=== PATIENT | female | born 1940 | race African-American/Black ===

== ENCOUNTER 2020-03-10 22:29 | Inpatient (IN) | payer MEDICARE, MEDICAID ==
[~2020-03-10] VITALS: Ht 170.2 cm; Wt 84.6 kg
[~2020-03-10 22:29] MED LIST: AMIN30LI2 PO; ASCO500C6 PO; ASPI-1497 PO; ATOR10TA PO; BRIM10DR2 OP; BRIM15DR2 RIGHTEYE; CHOL100044 PO; CLON0.1T PO; CLOP75TA4 PO; DOCU-138 PO; FAMO20TA8 PO; GABA100C PO; GLIP5TAB12 PO; MELA3TAB63 PO; METF-414 PO; METO25TA6 PO; MULT-1146 PO; PIOG15TA6 PO; TRAV2.5D EACHEYE
[2020-03-10] MEDS ORDERED: ONDANSETRON HCL 4MG/2ML INJ IV STA (23:28)
[2020-03-10] MEDS ORDERED: SODIUM CHLORIDE 0.9% 1,000 ML IV ONE (23:28)
[2020-03-11 00:19] LABS: BASOPHILS % 0.9 % (0.0-2.0); EOSINOPHILS % 2.1 % (0.0-5.0); HEMOGLOBIN. 12.4 g/dL (12.0-16.0); LYMPHOCYTES % 30.8 % (20.0-50.0); MEAN CORPUSCULAR VOLUME 82.7 fL (81.0-99.0); MEAN PLATELET VOLUME 8.2 fl (7.4-10.4); MONOCYTES % 8.5 % (2.0-8.0); NEUTROPHILS % 57.7 % (40.0-76.0); PLATELET 296 x1000/uL (130-400); RED BLOOD CELL COUNT 4.59 mill/uL (4.2-5.4); RED CELL DISTRIBUTION WIDTH 18.3 % (11.6-14.6)
[2020-03-11 00:22] LABS: CHLORIDE 107 mEq/L (98-107)
[2020-03-11 00:25] LABS: INR 1.1; PROTHROMBIN TIME 11.2 sec (9.6-11.0)
[2020-03-11] MEDS ORDERED: DESMOPRESSIN ACETATE IVPB 20 MCG in SODIUM CHLORIDE 0.9% 50 ML IV ONE (00:30)
[2020-03-11] MEDS ORDERED: LORAZEPAM 2MG/ML CPJ IV PRN (08:00)
[2020-03-11] MEDS: CLONIDINE 0.1MG TABLET PO SCH ×3 (08:17→21:15)
[2020-03-11] MEDS ORDERED: LABETALOL 5MG/ML SYR 20 MG/4 ML SYRINGE IV NR (09:50)
[2020-03-11] MEDS ORDERED: ONDANSETRON HCL 4MG/2ML INJ IV PRN (10:15)
[2020-03-11] MEDS ORDERED: DEXTROSE 50% WATER 50ML SYRINGE IV PRN (10:15)
[2020-03-11] MEDS ORDERED: CLONIDINE 0.1MG TABLET PO PRN (10:15)
[2020-03-11] MEDS ORDERED: ACETAMINOPHEN 325MG TABLET PO PRN (10:15)
[2020-03-11] MEDS: FAMOTIDINE 20MG TABLET PO SCH (10:18)
[2020-03-11] MEDS: GLIPIZIDE 5MG TABLET PO SCH ×2 (10:18→17:23)
[2020-03-11] MEDS: METOPROLOL TARTRATE 25MG TABLET PO SCH ×2 (10:19→21:16)
[2020-03-11] MEDS: GABAPENTIN 100MG CAPSULE PO SCH ×4 (10:19→21:15)
[2020-03-11 10:30] VITALS: BP 203/89
[2020-03-11 11:00] VITALS: BP 150/60
[2020-03-11] MEDS: AMLODIPINE 10MG TABLET PO SCH (11:13)
[2020-03-11 12:00] VITALS: BP 160/64
[2020-03-11] MEDS: BLOOD SUGAR DIAGNOSTIC STRIP TEST SCH ×3 (12:32→21:16)
[2020-03-11] MEDS: INSULIN LISPRO 100 UNITS/ML SUBCUT SCH ×3 (12:58→21:00)
[2020-03-11] MEDS ORDERED: METFORMIN HCL 500MG TABLET PO SCH (13:00)
[2020-03-11 16:00] VITALS: BP 115/52
[2020-03-11 20:00] VITALS: BP 174/62
[2020-03-11] MEDS: METFORMIN HCL 500MG TABLET PO SCH (21:15)
[2020-03-12] VITALS: BP 116/59
[2020-03-12 04:00] VITALS: BP 164/55
[2020-03-12] MEDS: CLONIDINE 0.1MG TABLET PO SCH ×3 (06:22→22:49)
[2020-03-12] MEDS: BLOOD SUGAR DIAGNOSTIC STRIP TEST SCH ×4 (06:23→21:00)
[2020-03-12] MEDS: INSULIN LISPRO 100 UNITS/ML SUBCUT SCH ×4 (06:23→22:51)
[2020-03-12] MEDS: GLIPIZIDE 5MG TABLET PO SCH ×2 (06:24→16:49)
[2020-03-12 10:02] VITALS: BP 164/56
[2020-03-12] MEDS: AMLODIPINE 10MG TABLET PO SCH (10:21)
[2020-03-12] MEDS: FAMOTIDINE 20MG TABLET PO SCH (10:21)
[2020-03-12] MEDS: METOPROLOL TARTRATE 25MG TABLET PO SCH ×2 (10:21→22:49)
[2020-03-12] MEDS: GABAPENTIN 100MG CAPSULE PO SCH ×4 (10:22→22:49)
[2020-03-12 16:13] LABS: CHLORIDE 106 mEq/L (98-107)
[2020-03-12 16:19] LABS: BASOPHILS % 0.7 % (0.0-2.0); EOSINOPHILS % 2.3 % (0.0-5.0); HEMATOCRIT. 28.5 % (36.0-48.0); HEMOGLOBIN. 9.2 g/dL (12.0-16.0); LYMPHOCYTES % 27.1 % (20.0-50.0); MEAN CORPUSCULAR HEMOGLOBIN 26.4 pg (28.0-32.0); MEAN CORPUSCULAR VOLUME 82.1 fL (81.0-99.0); MEAN PLATELET VOLUME 8.5 fl (7.4-10.4); MONOCYTES % 7.9 % (2.0-8.0); PLATELET 244 x1000/uL (130-400); RED BLOOD CELL COUNT 3.47 mill/uL (4.2-5.4); RED CELL DISTRIBUTION WIDTH 18.7 % (11.6-14.6)
[2020-03-12 20:00] VITALS: BP 177/67
[2020-03-12] MEDS: METFORMIN HCL 500MG TABLET PO SCH (22:50)
[2020-03-13] VITALS (7 sets, daily range): BP systolic 134–193; BP diastolic 48–92
[2020-03-13] MEDS: CLONIDINE 0.1MG TABLET PO SCH ×3 (05:28→21:12)
[2020-03-13] MEDS: BLOOD SUGAR DIAGNOSTIC STRIP TEST SCH ×4 (06:24→21:13)
[2020-03-13] MEDS: GLIPIZIDE 5MG TABLET PO SCH ×2 (06:24→18:02)
[2020-03-13] MEDS: INSULIN LISPRO 100 UNITS/ML SUBCUT SCH ×3 (06:25→18:05)
[2020-03-13] MEDS: FAMOTIDINE 20MG TABLET PO SCH (08:32)
[2020-03-13] MEDS: METOPROLOL TARTRATE 25MG TABLET PO SCH ×2 (08:33→21:12)
[2020-03-13] MEDS: AMLODIPINE 10MG TABLET PO SCH (08:33)
[2020-03-13] MEDS: GABAPENTIN 100MG CAPSULE PO SCH ×4 (08:33→21:11)
[2020-03-13 10:31] LABS: HEMATOCRIT 34.5 % (36.0-48.0); HEMOGLOBIN 11.1 g/dL (12.0-16.0)
[2020-03-13] MEDS: METFORMIN HCL 500MG TABLET PO SCH (21:12)
== END 2020-03-13 23:05 | DRG 207 ==
LOC: ER 22:29 → 5WST 03-11 01:17 → ENRESERV 03-11 07:39
PROVIDERS: ADMIT Internal Medicine; ATTEND Internal Medicine
PROC: 30233M1 Transfusion of Nonautologous Plasma Cryoprecipitate into Peripheral Vein, Percutaneous Approach (ICD-10-PCS; principal; 2020-03-11)
DX: R58 Hemorrhage, not elsewhere classified (principal); I16.0 Hypertensive urgency; I10 Essential (primary) hypertension; E11.9 Type 2 diabetes mellitus without complications; E78.5 Hyperlipidemia, unspecified; E44.0 Moderate protein-calorie malnutrition; F03.90 Unspecified dementia, unspecified severity, without behavioral disturbance, psychotic disturbance, mood disturbance, and anxiety; E78.00 Pure hypercholesterolemia, unspecified; Z86.73 Personal history of transient ischemic attack (TIA), and cerebral infarction without residual deficits; Z79.02 Long term (current) use of antithrombotics/antiplatelets; Z68.29 Body mass index [BMI] 29.0-29.9, adult; Z79.899 Other long term (current) drug therapy
CPT/HCPCS: 36415; 71045; 80048; 80053; 82962; 85014; 85018; 85025; 86850; 86900; 86927; 93005; 99291; J1815; J2060; J2405; J2597; J3490; J7030; P9017

== ENCOUNTER 2022-01-16 01:53 | Inpatient (IN) | payer MEDICARE, MEDICAID ==
[~2022-01-16] VITALS: Ht 157.5 cm; Wt 69.9 kg
[~2022-01-16 01:53] MED LIST changes: +CLOP-31 PO; -CLOP75TA4 PO; +MELA3TAB40 PO; -MELA3TAB63 PO; -TRAV2.5D EACHEYE; +TRAV2.5D9 EACHEYE
[2022-01-16] MEDS ORDERED: IPRATROPIUM BROMIDE (0.02%) 0.5MG/2.5ML NEB HHN STA (01:58)
[2022-01-16] MEDS ORDERED: METHYLPREDNISOLONE SOD SUCC 125 MG/2 ML VIAL IV STA (01:58)
[2022-01-16] MEDS ORDERED: ALBUTEROL (0.083%) 2.5MG/3ML NEB HHN STA (01:58)
[2022-01-16 03:13] LABS: BASOPHILS % 0.2 % (0.0-2.0); EOSINOPHILS % 0.4 % (0.0-5.0); HEMATOCRIT. 39.1 % (36.0-48.0); HEMOGLOBIN. 12.4 g/dL (12.0-16.0); LYMPHOCYTES % 11.4 % (20.0-50.0); MEAN CORPUSCULAR HEMOGLOBIN 26.1 pg (28.0-32.0); MEAN CORPUSCULAR VOLUME 82.4 fL (81.0-99.0); MEAN PLATELET VOLUME 8.7 fl (7.4-10.4); MONOCYTES % 5.9 % (2.0-8.0); NEUTROPHILS % 82.1 % (40.0-76.0); PLATELET 311 x1000/uL (130-400); RED BLOOD CELL COUNT 4.74 mill/uL (4.2-5.4)
[2022-01-16] MEDS ORDERED: AZITHROMYCIN 500MG/250ML 250 ML IV NR (03:30)
[2022-01-16] MEDS ORDERED: CEFTRIAXONE 1 G PREMIX 50 ML IV NR (03:30)
[2022-01-16 03:47] LABS: CHLORIDE 107 mEq/L (98-107)
[2022-01-16 03:57] LABS: ETHANOL BLOOD < 10 mg/dL
[2022-01-16] MEDS ORDERED: NITROGLYCERIN OINT 1GM/INCH UDPKT TD ONE (05:30)
[2022-01-16] MEDS ORDERED: ASPIRIN 325MG EC TABLET PO ONE (05:30)
[2022-01-16] MEDS ORDERED: CLOPIDOGREL 75MG TABLET PO NR (05:30)
[2022-01-16] MEDS ORDERED: FUROSEMIDE 40MG/4ML VIAL IVP ONE (05:45)
[2022-01-16 06:07] LABS: BG BASE EXCESS -2.2 mmol/L (-2.0-2.0); BG CARBOXYHEMOGLOBIN 0.4 % (0.5-1.5); BG DEOXYHEMOGLOBIN 3.7 % (0.0-5.0); BG FRACTION INSPIRED OXYGEN 28; BG HCO3 ACT 22.7 mmol/L (22.0-26.0); BG METHEMOGLOBIN 0.4 % (0.0-1.5); BG OXYGEN SATURATION 96.3 % (92.0-98.5); BG OXYHEMOGLOBIN 95.5 % (94.0-97.0); BG PCO2 39.6 mmHg (35.0-45.0); BG PH 7.377 (7.350-7.450); BG PO2 84.5 mmHg (75.0-100.0); BG SAMPLE SITE RIGHT RADIAL; BG TOTAL HEMOGLOBIN 12.9 g/dL (12.0-18.0); BG VENT MODE MASK - BIPAP
[2022-01-16] MEDS: METOPROLOL TARTRATE 25MG TABLET PO SCH ×2 (09:14→17:13)
[2022-01-16 10:30] LABS: *AMPHETAMINES SCREEN URINE NEGATIVE (NEGATIVE); *BARBITURATES SCREEN URINE NEGATIVE (NEGATIVE); *BENZODIAZEPINES SCREEN URINE NEGATIVE (NEGATIVE); *COCAINE SCREEN URINE NEGATIVE (NEGATIVE); CANNABINOID URINE SCREEN NEGATIVE (NEGATIVE); METHADONE URINE SCREEN NEGATIVE (NEGATIVE); OPIATES URINE SCREEN NEGATIVE (NEGATIVE); PHENCYCLIDINE URINE SCREEN NEGATIVE (NEGATIVE)
[2022-01-16] MEDS: ATORVASTATIN CALCIUM 10MG TABLET PO SCH (21:00)
[2022-01-17 09:06] LABS: BASOPHILS % 0.6 % (0.0-2.0); EOSINOPHILS % 0.1 % (0.0-5.0); HEMATOCRIT. 34.7 % (36.0-48.0); HEMOGLOBIN. 11.1 g/dL (12.0-16.0); LYMPHOCYTES % 17.8 % (20.0-50.0); MEAN CORPUSCULAR HEMOGLOBIN 25.9 pg (28.0-32.0); MEAN PLATELET VOLUME 8.7 fl (7.4-10.4); MONOCYTES % 11.8 % (2.0-8.0); NEUTROPHILS % 69.7 % (40.0-76.0); PLATELET 302 x1000/uL (130-400); RED BLOOD CELL COUNT 4.28 mill/uL (4.2-5.4); RED CELL DISTRIBUTION WIDTH 18.7 % (11.6-14.6)
[2022-01-17 09:14] LABS: CHLORIDE 107 mEq/L (98-107)
[2022-01-17] MEDS: METOPROLOL TARTRATE 25MG TABLET PO SCH ×2 (09:25→18:26)
[2022-01-17] MEDS: CLOPIDOGREL 75MG TABLET PO SCH (09:25)
[2022-01-17] MEDS: ASPIRIN 81MG EC TABLET PO SCH (09:25)
[2022-01-17] MEDS: AMLODIPINE 2.5MG TABLET PO SCH ×2 (10:27→21:04)
[2022-01-17 11:30] VITALS: BP 130/85
[2022-01-17] MEDS: FUROSEMIDE 40MG/4ML VIAL IVP SCH ×2 (13:00→13:52)
[2022-01-17] MEDS ORDERED: DEXTROSE 50% WATER 50ML SYRINGE IV PRN (13:00)
[2022-01-17] MEDS: ENOXAPARIN 30MG/0.3ML SYR SUBCUT SCH (15:00)
[2022-01-17 16:30] VITALS: BP 159/86
[2022-01-17] MEDS: BLOOD SUGAR DIAGNOSTIC STRIP TEST SCH ×2 (16:40→21:00)
[2022-01-17] MEDS: INSULIN LISPRO 100 UNITS/ML SUBCUT SCH ×2 (17:10→21:00)
[2022-01-17 20:00] VITALS: BP 168/79
[2022-01-17] MEDS: ATORVASTATIN CALCIUM 10MG TABLET PO SCH (21:04)
[2022-01-18] VITALS: BP 142/94
[2022-01-18 04:00] VITALS: BP 168/86
[2022-01-18 07:05] LABS: CHLORIDE 104 mEq/L (98-107)
[2022-01-18] MEDS: INSULIN LISPRO 100 UNITS/ML SUBCUT SCH ×4 (07:10→21:00)
[2022-01-18] MEDS: BLOOD SUGAR DIAGNOSTIC STRIP TEST SCH ×4 (07:21→21:00)
[2022-01-18 07:32] LABS: BASOPHILS % 0.5 % (0.0-2.0); EOSINOPHILS % 0.6 % (0.0-5.0); HEMATOCRIT. 35.4 % (36.0-48.0); HEMOGLOBIN. 11.5 g/dL (12.0-16.0); LYMPHOCYTES % 30.8 % (20.0-50.0); MEAN CORPUSCULAR HEMOGLOBIN 26.4 pg (28.0-32.0); MEAN CORPUSCULAR VOLUME 80.9 fL (81.0-99.0); MEAN PLATELET VOLUME 8.7 fl (7.4-10.4); MONOCYTES % 8.1 % (2.0-8.0); PLATELET 298 x1000/uL (130-400); RED BLOOD CELL COUNT 4.37 mill/uL (4.2-5.4); RED CELL DISTRIBUTION WIDTH 18.5 % (11.6-14.6)
[2022-01-18 08:00] VITALS: BP 123/70
[2022-01-18] MEDS: CLOPIDOGREL 75MG TABLET PO SCH (09:25)
[2022-01-18] MEDS: AMLODIPINE 2.5MG TABLET PO SCH ×2 (09:25→22:35)
[2022-01-18] MEDS: METOPROLOL TARTRATE 25MG TABLET PO SCH ×2 (09:25→18:53)
[2022-01-18] MEDS: ASPIRIN 81MG EC TABLET PO SCH (09:25)
[2022-01-18] MEDS: FUROSEMIDE 40MG/4ML VIAL IVP SCH (09:25)
[2022-01-18] MEDS ORDERED: POTASSIUM CHLORIDE 20MEQ TABLET SR PO NR (11:15)
[2022-01-18 12:00] VITALS: BP 122/63
[2022-01-18] MEDS: ENOXAPARIN 30MG/0.3ML SYR SUBCUT SCH (14:22)
[2022-01-18 16:00] VITALS: BP 128/77
[2022-01-18 20:00] VITALS: BP 168/78
[2022-01-18] MEDS: ATORVASTATIN CALCIUM 10MG TABLET PO SCH (21:00)
[2022-01-19] VITALS: BP 181/89
[2022-01-19 04:00] VITALS: BP 182/91
[2022-01-19] MEDS: BLOOD SUGAR DIAGNOSTIC STRIP TEST SCH ×4 (05:45→21:00)
[2022-01-19] MEDS: INSULIN LISPRO 100 UNITS/ML SUBCUT SCH ×4 (05:49→21:37)
[2022-01-19 07:17] LABS: BASOPHILS % 0.4 % (0.0-2.0); CHLORIDE 103 mEq/L (98-107); EOSINOPHILS % 1.4 % (0.0-5.0); HEMATOCRIT. 38.7 % (36.0-48.0); HEMOGLOBIN. 12.8 g/dL (12.0-16.0); LYMPHOCYTES % 32.2 % (20.0-50.0); MEAN CORPUSCULAR HEMOGLOBIN 26.7 pg (28.0-32.0); MEAN CORPUSCULAR VOLUME 80.4 fL (81.0-99.0); MEAN PLATELET VOLUME 8.9 fl (7.4-10.4); PLATELET 297 x1000/uL (130-400); RED BLOOD CELL COUNT 4.82 mill/uL (4.2-5.4); RED CELL DISTRIBUTION WIDTH 18.8 % (11.6-14.6)
[2022-01-19 08:00] VITALS: BP 145/92
[2022-01-19] MEDS: CLOPIDOGREL 75MG TABLET PO SCH (09:33)
[2022-01-19] MEDS: ASPIRIN 81MG EC TABLET PO SCH (09:33)
[2022-01-19] MEDS: AMLODIPINE 5MG TABLET PO SCH ×2 (09:33→21:30)
[2022-01-19] MEDS: FUROSEMIDE 40MG/4ML VIAL IVP SCH (09:33)
[2022-01-19] MEDS: METOPROLOL TARTRATE 50MG TABLET PO SCH ×2 (09:34→17:08)
[2022-01-19 12:00] VITALS: BP 141/94
[2022-01-19 16:00] VITALS: BP 132/81
[2022-01-19] MEDS: ENOXAPARIN 30MG/0.3ML SYR SUBCUT SCH (17:08)
[2022-01-19 20:00] VITALS: BP 158/80
[2022-01-19] MEDS: ATORVASTATIN CALCIUM 10MG TABLET PO SCH (21:00)
[2022-01-20] VITALS: BP 147/67
[2022-01-20 04:00] VITALS: BP 127/46
[2022-01-20] MEDS: BLOOD SUGAR DIAGNOSTIC STRIP TEST SCH ×4 (06:04→21:00)
[2022-01-20] MEDS: INSULIN LISPRO 100 UNITS/ML SUBCUT SCH ×4 (06:04→22:12)
[2022-01-20 07:06] LABS: BASOPHILS % 0.3 % (0.0-2.0); EOSINOPHILS % 0.9 % (0.0-5.0); HEMATOCRIT. 42.8 % (36.0-48.0); HEMOGLOBIN. 13.8 g/dL (12.0-16.0); MEAN CORPUSCULAR HEMOGLOBIN 26.5 pg (28.0-32.0); MEAN CORPUSCULAR VOLUME 81.7 fL (81.0-99.0); MEAN PLATELET VOLUME 8.7 fl (7.4-10.4); MONOCYTES % 8.6 % (2.0-8.0); NEUTROPHILS % 57.2 % (40.0-76.0); PLATELET 293 x1000/uL (130-400); RED BLOOD CELL COUNT 5.23 mill/uL (4.2-5.4)
[2022-01-20 07:20] LABS: CHLORIDE 102 mEq/L (98-107)
[2022-01-20 08:00] VITALS: BP 146/42
[2022-01-20] MEDS: FUROSEMIDE 40MG/4ML VIAL IVP SCH (09:52)
[2022-01-20] MEDS: CLOPIDOGREL 75MG TABLET PO SCH (09:52)
[2022-01-20] MEDS: ASPIRIN 81MG EC TABLET PO SCH (09:52)
[2022-01-20] MEDS: METOPROLOL TARTRATE 50MG TABLET PO SCH ×2 (09:53→17:00)
[2022-01-20] MEDS: AMLODIPINE 5MG TABLET PO SCH ×2 (09:54→22:06)
[2022-01-20] MEDS: ENOXAPARIN 30MG/0.3ML SYR SUBCUT SCH (15:00)
[2022-01-20 16:00] VITALS: BP 140/53
[2022-01-20 16:53] VITALS: BP 140/53
[2022-01-20 20:00] VITALS: BP 128/62
[2022-01-20] MEDS: ATORVASTATIN CALCIUM 10MG TABLET PO SCH (22:06)
[2022-01-21] VITALS (8 sets, daily range): BP systolic 137–183; BP diastolic 52–78
[2022-01-21] MEDS: BLOOD SUGAR DIAGNOSTIC STRIP TEST SCH ×2 (06:08→11:44)
[2022-01-21] MEDS: INSULIN LISPRO 100 UNITS/ML SUBCUT SCH ×2 (06:08→12:10)
[2022-01-21] MEDS: AMLODIPINE 5MG TABLET PO SCH (09:03)
[2022-01-21] MEDS: METOPROLOL TARTRATE 50MG TABLET PO SCH (09:03)
[2022-01-21] MEDS: CLOPIDOGREL 75MG TABLET PO SCH (09:03)
[2022-01-21] MEDS: ASPIRIN 81MG EC TABLET PO SCH (09:03)
[2022-01-21] MEDS: FUROSEMIDE 40MG/4ML VIAL IVP SCH (09:04)
[2022-01-21] MEDS ORDERED: CLONIDINE 0.1MG TABLET PO PRN (10:15)
[2022-01-21] MEDS ORDERED: CLONIDINE 0.1MG TABLET PO SCH (10:15)
[2022-01-22] MEDS ORDERED: FUROSEMIDE 40MG TABLET PO SCH (09:00)
== END 2022-01-21 13:42 | DRG 720 ==
LOC: ER 01:53 → MICUSO 11:09 → EDBEDREQSVC 22:02 → EDBEDREQTM 22:02 → MICUSO 01-17 07:19 → 7EST 01-17 09:50
PROVIDERS: ADMIT Internal Medicine Nephrology; ATTEND Internal Medicine Nephrology
PROC: 5A09457 Assistance with Respiratory Ventilation, 24-96 Consecutive Hours, Continuous Positive Airway Pressure (ICD-10-PCS; principal; 2022-01-16)
DX: A41.89 Other specified sepsis (principal); J96.01 Acute respiratory failure with hypoxia; J12.82 Pneumonia due to coronavirus disease 2019; I21.4 Non-ST elevation (NSTEMI) myocardial infarction; E46 Unspecified protein-calorie malnutrition; U07.1 COVID-19; I48.91 Unspecified atrial fibrillation; I69.354 Hemiplegia and hemiparesis following cerebral infarction affecting left non-dominant side; I16.0 Hypertensive urgency; I49.3 Ventricular premature depolarization; F03.90 Unspecified dementia, unspecified severity, without behavioral disturbance, psychotic disturbance, mood disturbance, and anxiety; E87.6 Hypokalemia; I11.0 Hypertensive heart disease with heart failure; I50.30 Unspecified diastolic (congestive) heart failure; I25.10 Atherosclerotic heart disease of native coronary artery without angina pectoris; E11.51 Type 2 diabetes mellitus with diabetic peripheral angiopathy without gangrene; I49.1 Atrial premature depolarization; E11.42 Type 2 diabetes mellitus with diabetic polyneuropathy; E78.5 Hyperlipidemia, unspecified; E78.00 Pure hypercholesterolemia, unspecified; Z79.899 Other long term (current) drug therapy; Z68.28 Body mass index [BMI] 28.0-28.9, adult; Z74.01 Bed confinement status; I25.2 Old myocardial infarction; Z79.02 Long term (current) use of antithrombotics/antiplatelets; Z79.82 Long term (current) use of aspirin
CPT/HCPCS: 36415; 36600; 71045; 80048; 80053; 80305; 80320; 82375; 82805; 82962; 83605; 83880; 84484; 85025; 86850; 86900; 87426; 93005; 94660; 99291; C9803; J0456; J0696; J1650; J1815; J1940; J2930; G0480